=== PATIENT | female | born 1975 | race Caucasian/White ===

== ENCOUNTER 2019-09-10 13:02 | Outpatient (CLI) | payer OTHER ==
--- NOTE | 2019-09-10 13:17 | RAD ---
EXAM: Two views chest PROVIDED CLINICAL HISTORY: Dyspnea COMPARISON: 02/09/2017 FINDINGS: Cardiac silhouette and pulmonary vasculature are within normal limits. There is a vague nodular dens ity seen overlying left lung base. This could be artifactual, but rounded area of pneumonia or atelectasis is a possibility. Follow-up chest x-ray is recommended. The lungs are otherwise clear. No consolidation or pleural fluid is seen. The osseous structures have a normal appearance. IMPRESSION: Vague nodular density overlying left lung base. This could be artifactual, but subtle round area of p neumonia versus atelectasis is also a possibility. Follow-up chest x-ray is recommended to ensure resolution..
== END 2019-09-10 13:03 | disposition home or self-care (01) ==
LOC: RAD 13:02
PROVIDERS: ATTEND Internal Medicine Pulmonary Disease
DX: R06.00 Dyspnea, unspecified (principal); R91.8 Other nonspecific abnormal finding of lung field
CPT/HCPCS: 71046

== ENCOUNTER 2020-12-31 17:52 | Emergency (ER) | payer OTHER ==
[2020-12-31] MEDS ORDERED: Ketorolac Tromethamine 30 MG/ML VIAL ONE (18:29)
== END 2020-12-31 19:30 | disposition home or self-care (01) ==
LOC: ERS 17:52
DX: M25.512 Pain in left shoulder (principal); I10 Essential (primary) hypertension; Z79.899 Other long term (current) drug therapy
CPT/HCPCS: 96372; J1885

== ENCOUNTER 2021-02-02 10:56 | Outpatient (CLI) | payer OTHER | END 2021-02-02 10:57 | disposition home or self-care (01) | LOC: TBSIIMAG 10:56 | PROVIDERS: ATTEND Family Medicine | DX: M25.512 Pain in left shoulder (principal); M19.012 Primary osteoarthritis, left shoulder; M75.92 Shoulder lesion, unspecified, left shoulder; S43.432A Superior glenoid labrum lesion of left shoulder, initial encounter; M25.812 Other specified joint disorders, left shoulder ==